=== PATIENT | male | born 1990 | race Caucasian/White ===

== ENCOUNTER 2021-08-15 04:22 | Emergency (ER) | payer OTHER ==
[2021-08-15 09:27] LABS: BASOPHIL 0.3 % (0-2); EOSINOPHIL 1.2 % (0-5); HCT 46.3 % (42.0-52.0); LYMPHOCYTE 29.1 % (15-48); MCH 28.5 pg (25.0-31.0); MCHC 32.4 g/dL (32.0-36.0); MCV 87.9 fL (78.0-100.0); MONOCYTE 6.7 % (0-12); MPV 9.9 fL (6.0-9.5); NRBC 0; PLT 294 K/uL (150-400); RBC 5.27 M/uL (4.70-6.00); RDW 12.8 % (11.5-14.0); WBC 9.5 K/uL (4.0-10.5)
[2021-08-15 09:34] LABS: ALBUMIN 4.3 g/dL (3.4-5.0); BILIRUBIN - TOTAL 0.4 mg/dL (0.2-1.0); BUN/CREAT RATIO (CALC) 15.8 RATIO; CREATININE 0.95 mg/dL (0.67-1.17); GLOBULIN (CALCULATION) 3.4 g/dL; POTASSIUM 3.9 mmol/L (3.5-5.1); TOTAL PROTEIN 7.7 g/dL (6.4-8.2)
[2021-08-15 11:35] LABS: BILIRUBIN NEGATIVE (NEGATIVE); BLOOD 1+ Ery/uL (NEGATIVE); CLARITY CLEAR (CLEAR); COLOR YELLOW (YELLOW); GLUCOSE (U) NORMAL (NORMAL); LEUKOCYTES NEGATIVE Leu/uL (NEGATIVE); NITRITE NEGATIVE (NEGATIVE); PROTEIN NEGATIVE (NEGATIVE); SPECIFIC GRAVITY 1.015 (1.001-1.030); UROBILINOGEN 0.2 mg/dL (0.2-1.0)
[2021-08-15 11:40] LABS: URINARY WBC RARE
== END 2021-08-15 11:54 | disposition home or self-care (01) ==
LOC: FER 04:22
PROVIDERS: Emergency Medicine
DX: K42.9 Umbilical hernia without obstruction or gangrene (principal)
CPT/HCPCS: 36415; 80053; 81001; 85025; Q9967

== ENCOUNTER → 2021-09-25 | Day surgery (SDC) | payer OTHER ==
[~2021-09-25] VITALS: Ht 180 cm; Wt 127.0 kg
[~2021-09-25] MED LIST: ONDANSETRON ODT4 MG PO; PERCOCET 5-3251 EACH PO
== END | disposition home or self-care (01) ==
LOC: FAS 09-19 08:45
DX: K42.0 Umbilical hernia with obstruction, without gangrene (principal); Z87.891 Personal history of nicotine dependence; E66.01 Morbid (severe) obesity due to excess calories; Z68.41 Body mass index [BMI] 40.0-44.9, adult
CPT/HCPCS: 93005; C1713; C1781; J0690; J1170; J2250; J2405; J2704; J2710; J3010; J7120